=== PATIENT | male | born 1965 | race Two or more races ===

== ENCOUNTER 2019-04-04 10:34 | Emergency (ER) | payer OTHER ==
[~2019-04-04] VITALS: Ht 180.3 cm; Wt 71.2 kg
[2019-04-04] MEDS ORDERED: ASA81 MG (11:10)
[2019-04-04] MEDS ORDERED: ETODOLAC600 MG (11:16)
== END 2019-04-04 20:47 | disposition home or self-care (01) ==
LOC: ER 10:34
DX: M51.86 Other intervertebral disc disorders, lumbar region (principal); M25.551 Pain in right hip; R42 Dizziness and giddiness; R10.84 Generalized abdominal pain

== ENCOUNTER 2024-10-14 17:43 | Emergency (ER) | payer OTHER ==
[~2024-10-14] VITALS: Ht 180.3 cm; Wt 70.8 kg
[~2024-10-14 17:43] MED LIST: ASA81 MG; ETODOLAC600 MG
[2024-10-14] MEDS ORDERED: XARELTO20 MG PO (18:26)
[2024-10-14] MEDS ORDERED: TOPROL XL25 M1 PO (18:26)
[2024-10-14] MEDS ORDERED: ORPHENADRINE CITRATE 30 MG/ML AMPUL IM ONE (20:00)
[2024-10-14] MEDS ORDERED: TRIAMCINOLONE ACETONIDE 40 MG/ML VIAL IM ONE (20:00)
[2024-10-14] MEDS ORDERED: TRAMADOL HCL 50 MG TABLET PO ONE (20:00)
[2024-10-14] MEDS ORDERED: ORPHENADRINE CITRATE 30 MG/ML AMPUL ONE (20:11)
[2024-10-14] MEDS ORDERED: TRIAMCINOLONE ACETONIDE 40 MG/ML VIAL ONE (20:11)
== END 2024-10-14 20:44 | disposition home or self-care (01) ==
LOC: ER 17:46
DX: M54.2 Cervicalgia (principal); Z88.6 Allergy status to analgesic agent